=== PATIENT | male | born 1970 | race Asian ===

== ENCOUNTER → 2016-06-25 | Outpatient (CLI) | payer BC ==
[~2016-06-25] MED LIST: PHENERGAN PO
--- NOTE | ~2016-06-25 | US5 ---
[facility] A Service of [facility] & [facility] RADIOLOGY TEXT RESULTS PATIENT: ZAKI CRUZ LOCATION: [facility] : 72 UNIT #: [id number] AGE: [address]: Ronald Larios MD SEX: M ORDER DR: [id number] [facility]. [place], [place] [address] [id number] MR#: [id number] Acc #: [id number] NAME: ZAKI CRUZ : 1970 SEX: M STUDY DATE/TIME: 06/25/2016 10:25 UNIT: [facility] ROOM: STUDY DESCRIPTION: US Abdominal Complete Attending Physician: Ronald Larios III, M.D. Referring Physician: Ronald Larios III, M.D. Ordering Physician: Ronald Larios III, M.D. Primary Care Physician: Primary Care Physician No MEDICAL IMAGING REPORT This report is preliminary unless electronic signature is present EXAM Abdominal ultrasound INDICATIONS Hepatitis C. Observation for cirrhosis and hepatocellular carcinoma. Elevated liver enzyme levels. PROCEDURE Overton-scale and Doppler imaging of the abdomen. COMPARISON: 06/21/2015 FINDINGS: Submitted images abdominal aorta and IVC unremarkable. Pancreas is mostly obscured by bowel gas. The liver is difficult to evaluate on this study. Echotexture appears relatively homogeneous. Liver measures approximately 13.6 cm and there is no liver mass seen on submitted images. The right kidney measures 9.2 cm. Unremarkable gallbladder. Common duct measures up to 6 mm. Common duct previously measured 1-2 mm. The left kidney measures 10 cm. No hydronephrosis. The spleen is not well seen but and measures approximately 9.8 cm. IMPRESSION 1. The liver and spleen difficult to evaluate on this study, but do appear to be normal in size. Liver is not frankly cirrhotic and there is no liver mass seen on submitted images. 2. Common duct is more prominent than on the previous study now measuring up to 6 mm. Correlate with patient's laboratory values. If there is concern for biliary obstruction MRCP or ERCP may be helpful. Dictated by... Brendon Arriaza M.D. [facility] A Service of [facility] & [facility] RADIOLOGY TEXT RESULTS PATIENT: ZAKI CRUZ LOCATION: [facility] : 72 UNIT #: [id number] AGE: [address]: Ronald Larios MD SEX: M ORDER DR: THIS IS AN ELECTRONICALLY VERIFIED REPORT Brendon Arriaza M.D. at 06/26/2016 7:34 AM SARA/cammy TD: 06/25/2016 13:21 JOB #: [id number] MEDICAL IMAGING REPORT Page 1 of 1 COPY
== END | disposition home or self-care (01) ==
LOC: CGUS 09:47
DX: B19.20 Unspecified viral hepatitis C without hepatic coma (principal)
CPT/HCPCS: 76700